=== PATIENT | male | born 2000 | race Caucasian/White ===

== ENCOUNTER 2024-01-15 13:53 | Emergency (ER) | payer OTHER, SELFPAY ==
[2024-01-15 13:55] VITALS: BP 149/69; PULSE 68; RESP 16; TEMP 36.4; O2SAT 99
--- NOTE | 2024-01-15 14:39 | PC.NURSE ---
called Dr. Pandya at 1434 per patient request and notified them that the patient has arrived to the ER
--- NOTE | 2024-01-15 14:54 | ED.PSYCH ---
HPI - Psych General Chief Complaint: Psychiatric Symptoms Stated Complaint: psych problems Time Seen by Provider: 01/15/24 14:05 History of Present Illness HPI Narrative: Patient is a 23-year-old male presenting for psychiatric evaluation. States that he has a history of bipolar disorder. He had a phone appointment with his psychiatrist today and endorsed feeling disconnected from reality to the point that he could jump off a bridge. He states that he said this to reflect his disconnected feeling. States that he did not have intent for self-harm or suicide. He denies homicidal intent. He denies hallucinations. States that he has chronic anxiety and he is out of his Klonopin which he forgot to tell his psychiatrist. States that he has been under lot of stress lately due to financial and legal troubles. He states that he feels safe but he is here at the recommendation of his psychiatrist. Review of Systems Review of Systems: All systems reviewed & are unremarkable except as noted in HPI and below PMFSH Social History Social History Substance use type: does not use Exam Narrative: GENERAL: Well-appearing and in no acute distress. HEAD: Normocephalic, atraumatic. EYES: PERRLA and EOMI. ENT: . Mucous membranes moist. NECK: Supple. CHEST: No respiratory distress. HEART: Regular rate and rhythm EXTREMITIES: Normal range of motion. SKIN: Warm, dry, no rash. NEURO: No focal deficits. Alert and oriented x3. PSYCH: Normal mood and affect. Denies SI/HI, denies hallucinations; seems appropriate and pleasant Course Vital Signs Vital signs: Vital Signs Temperature 97.5 F L 01/15/24 13:55 Pulse Rate 68 01/15/24 13:55 Respiratory Rate 16 01/15/24 13:55 Blood Pressure 149/69 H 01/15/24 13:55 Pulse Oximetry 99 01/15/24 13:55 Temperature 97.5 F L 01/15/24 13:55 Pulse Rate 73 01/15/24 17:45 Respiratory Rate 15 01/15/24 17:45 Blood Pressure 136/78 01/15/24 17:45 Pulse Oximetry 100 01/15/24 17:45 MDM - Psych MDM Narrative Medical decision making narrative: 23-year-old male presenting for psychiatric evaluation. Blood work is unremarkable. Patient is clear for psychiatric evaluation. Patient was cleared by crisis for discharge. Patient was provided with resources for outpatient therapy. He will follow-up closely with his child & adolescent psychiatrist. He adamantly denies HI or SI. States that he feels safe going home will be staying with a friend. Feel that this is appropriate. Strict return precautions given. Discharged stable condition. Lab Data 01/15/24 16:47 01/15/24 16:47 Labs: Lab Results 01/15/24 Range/Units 16:47 WBC 11.1 H (4.5-10.0) K/mm3 RBC 5.59 (4.6-6.20) M/mm3 Hgb 16.1 (14.0-18.0) g/dL Hct 47.3 (42.0-52.0) % MCV 84.6 (80-100) fl MCH 28.8 (26-34) pg MCHC 34.0 (32-36) g/dl RDW 13.8 (11.5-14.5) % Plt Count 312 (150-375) k/mm3 MPV 9.9 (7.4-10.4) fl Immature Gran % (Auto) 0.3 (0-0.5) % Neut % (Auto) 63.0 (45.5-73.1) % Lymph % (Auto) 27.3 (18.3-44.2) % [place] % (Auto) 8.4 (2.6-8.5) % Eos % (Auto) 0.6 (0-4.4) % Baso % (Auto) 0.4 (0.2-1.2) % Lymph # (Auto) 3.03 (0.9-3.2) K/mm3 [place] # (Auto) 0.9 H (0.1-0.6) K/mm3 Eos # (Auto) 0.1 (0-0.3) K/mm3 Baso # (Auto) 0.0 (0.0-0.1) K/mm3 Abs Immat Gran (auto) 0.03 (0.00-0.031) K/mm3 Absolute Neuts (auto) 7.0 H (1.3-6.7) K/mm3 Absolute Nucleated RBC 0.000 (0.0-0.012) K/mm3 Nucleated RBC % 0.0 (0.0-0.2) % Sodium 142 (137-145) mmol/L Potassium 3.7 (3.4-5.0) mmol/L Chloride 104 (98-107) mmol/L Carbon Dioxide 22 (22-30) mmol/L Anion Gap 16 H (4-12) mmol/L BUN 26 H (9-20) mg/dL Creatinine 0.90 (0.7-1.3) mg/dL Estim Creat Clear Calc 148 ml/min Estimated GFR > 60 (59 - ) Glucose 87 (65-110) mg/dL Calcium 9.9 (8.4-10.2) mg/dL TSH 1.070 (0.465-4.680) uIU/mL
[2024-01-15 17:02] LABS: Basophils Percent Auto 0.4 % (0.2-1.2); Eosinophils Absolute Auto 0.1 K/mm3 (0-0.3); Eosinophils Percent Auto 0.6 % (0-4.4); Hematocrit 47.3 % (42.0-52.0); Hemoglobin 16.1 g/dL (14.0-18.0); Immature Granulocyte Absolute 0.03 K/mm3 (0.00-0.031); Immature Granulocyte Percent A 0.3 % (0-0.5); Lymphocytes Absolute Auto 3.03 K/mm3 (0.9-3.2); Lymphocytes Percent Auto 27.3 % (18.3-44.2); Mean Corpuscular Hemoglobin 28.8 pg (26-34); Mean Corpuscular Volume 84.6 fl (80-100); Mean Platelet Volume 9.9 fl (7.4-10.4); Monocytes Absolute Auto 0.9 K/mm3 (0.1-0.6); Monocytes Percent Auto 8.4 % (2.6-8.5); Platelet Count Result 312 k/mm3 (150-375); Red Blood Count 5.59 M/mm3 (4.6-6.20); Red Cell Distribution Width 13.8 % (11.5-14.5); White Blood Count 11.1 K/mm3 (4.5-10.0)
[2024-01-15 17:05] LABS: Appearance Urine Clear (Clear); Bacteria Urine None Seen /hpf; Bilirubin Urine Negative (Negative); Blood Urine Negative (Negative); Color Urine Yellow (Yellow); Glucose Urine UA Negative (Negative); Ketones Urine 2+ mg/dL (Negative); Leukocyte Esterase Ur Negative LEU/UL (Negative); Nitrate Urine Negative (Negative); Non Pathogenic Casts 0-2; Protein Urine Trace mg/dL (Negative); RBC Urine 0-2 /hpf (0-2); Specific Grav Ur 1.036 (1.001-1.035); Squamous Epithelial Cell Urine None Seen /hpf (Few); WBC Urine 0-5 /hpf (0-3); pH Urine 5.5 (5.0-9.0)
[2024-01-15 17:09] LABS: Acetaminophen < 10 ug/mL (10-30); Ethanol < 10 mg/dL (<10); Salicylate < 1.0 mg/dL (2-20)
[2024-01-15 17:10] LABS: Anion Gap 16 mmol/L (4-12); Blood Urea Nitrogen 26 mg/dL (9-20); Calcium 9.9 mg/dL (8.4-10.2); Carbon Dioxide 22 mmol/L (22-30); Chloride 104 mmol/L (98-107); Estimated CRCL calculation 148 ml/min; Estimated Glomerular Filt Rate > 60; Glucose 87 mg/dL (65-110); Potassium 3.7 mmol/L (3.4-5.0); Sodium 142 mmol/L (137-145)
[2024-01-15 17:17] LABS: Amphetamine Screen Urine Negative (Negative); Barbiturate Screen Urine Negative (Negative); Benzodiazepines Screen Urine Negative (Negative); Cannabinoid Screen Urine Positive (Negative); Cocaine Screen Urine Negative (Negative); Methadone Screen Urine Negative (Negative); Opiate Screen Urine Negative (Negative); Phencyclidine Screen Urine Negative (Negative)
[2024-01-15 17:24] LABS: Add Urine Microscopic? YES
[2024-01-15 17:34] LABS: Influenza A QL RT-PCR Negative (Negative); Influenza B QL RT-PCR Negative (Negative); RSV RNA, RT-PCR Negative (Negative); SARS-CoV-2 RNA PCR Negative (Negative)
[2024-01-15 17:45] VITALS: BP 136/78; PULSE 73; RESP 15; O2SAT 100
--- NOTE | 2024-01-15 19:37 | PC.NURSE ---
care and report given to MALENA Sumner. all questions answered.
== END 2024-01-15 20:55 | disposition home or self-care (01) ==
PROVIDERS: Emergency Provider Emergency Medicine
DX: Z00.8 Encounter for other general examination (principal); Z20.822 Contact with and (suspected) exposure to COVID-19
CPT/HCPCS: 36415; 80048; 80307; 81001; 84443; 85025; 87637; 99284